=== PATIENT | female | born 1955 | race Hispanic/Latino ===

== ENCOUNTER 2017-02-18 13:11 | Emergency (ER) | payer BC ==
[~2017-02-18 13:11] MED LIST: EPINEPHrine 1 MG/10 ML Abboject SYRINGE ONE; Sodium Bicarb 5 MEQ/10 ML Abboject 4.2% SYRINGE ONE
== END 2017-02-18 13:16 | disposition expired ==
LOC: ERS 13:11
DX: I46.9 Cardiac arrest, cause unspecified (principal); T14.8XXA Other injury of unspecified body region, initial encounter; V43.52XA Car driver injured in collision with other type car in traffic accident, initial encounter; W22.11XA Striking against or struck by driver side automobile airbag, initial encounter
CPT/HCPCS: 36430; 86850; 86900; 86901; 92950; 94760; 96374; 96375; G0390; J0171; P9016